=== PATIENT | female | born 1960 | race Caucasian/White ===

== ENCOUNTER → 2016-10-24 | Outpatient (CLI) | payer OTHER | LOC: RAD 16:40 | DX: M54.2 Cervicalgia (principal); M54.9 Dorsalgia, unspecified; R05 Cough; M47.812 Spondylosis without myelopathy or radiculopathy, cervical region; M25.78 Osteophyte, vertebrae; M47.814 Spondylosis without myelopathy or radiculopathy, thoracic region; M48.06 Spinal stenosis, lumbar region; M47.897 Other spondylosis, lumbosacral region; M47.892 Other spondylosis, cervical region; R91.8 Other nonspecific abnormal finding of lung field | CPT/HCPCS: 71020; 72050; 72072; 72110 ==

== ENCOUNTER → 2016-12-07 | Outpatient (CLI) | payer OTHER | LOC: KOH-I 09:30 | DX: M54.5 Low back pain (principal); M48.06 Spinal stenosis, lumbar region; M46.97 Unspecified inflammatory spondylopathy, lumbosacral region; M51.36 Other intervertebral disc degeneration, lumbar region | CPT/HCPCS: 72148 ==

== ENCOUNTER → 2020-07-30 | Outpatient (CLI) | payer OTHER | LOC: KOH-I 10:40 | DX: Z12.2 Encounter for screening for malignant neoplasm of respiratory organs (principal); Z87.891 Personal history of nicotine dependence; R91.8 Other nonspecific abnormal finding of lung field; I71.2 Thoracic aortic aneurysm, without rupture | CPT/HCPCS: 71271 ==

== ENCOUNTER → 2020-08-23 | Outpatient (CLI) | payer OTHER | LOC: RAD 13:33 | DX: R05 Cough (principal); M54.9 Dorsalgia, unspecified; M47.812 Spondylosis without myelopathy or radiculopathy, cervical region; M48.02 Spinal stenosis, cervical region; M25.78 Osteophyte, vertebrae; M47.816 Spondylosis without myelopathy or radiculopathy, lumbar region; M41.9 Scoliosis, unspecified; M48.061 Spinal stenosis, lumbar region without neurogenic claudication; Z90.11 Acquired absence of right breast and nipple | CPT/HCPCS: 71046; 72050; 72072; 72110 ==

== ENCOUNTER → 2020-09-20 | Outpatient (CLI) | payer OTHER ==
[2020-09-20 12:50] LABS: HEMOGLOBIN 13.5 gm/dl (12.3-15.3); RED BLOOD COUNT 4.1 M/UL (4.00-5.10); WHITE BLOOD COUNT 2.9 K/UL (4.5-11.0)
== END ==
LOC: MAMO 11:00
PROVIDERS: Internal Medicine Hematology & Oncology
DX: Z12.31 Encounter for screening mammogram for malignant neoplasm of breast (principal); Z85.3 Personal history of malignant neoplasm of breast; Z98.890 Other specified postprocedural states
CPT/HCPCS: 36415; 77063; 77067; 80053; 85025

== ENCOUNTER → 2021-01-27 | Outpatient (CLI) | payer OTHER | LOC: KOH-I 09:03 | DX: R91.8 Other nonspecific abnormal finding of lung field (principal) | CPT/HCPCS: 71250 ==

== ENCOUNTER → 2021-08-08 | Outpatient (CLI) | payer OTHER | LOC: HEART 5 07:37 | DX: R07.9 Chest pain, unspecified (principal); R00.2 Palpitations; R06.02 Shortness of breath | CPT/HCPCS: 78452; 93306; A9502 ==

== ENCOUNTER → 2021-09-21 | Outpatient (CLI) | payer OTHER | LOC: MAMO 10:30 | DX: C50.819 Malignant neoplasm of overlapping sites of unspecified female breast (principal) | CPT/HCPCS: 77063; 77067 ==

== ENCOUNTER → 2021-12-22 | Outpatient (CLI) | payer OTHER | LOC: KOH-I 12:21 | DX: M54.2 Cervicalgia (principal); M54.6 Pain in thoracic spine; M54.50 Low back pain, unspecified; R05.9 Cough, unspecified; M47.812 Spondylosis without myelopathy or radiculopathy, cervical region; M47.814 Spondylosis without myelopathy or radiculopathy, thoracic region; M47.816 Spondylosis without myelopathy or radiculopathy, lumbar region | CPT/HCPCS: 71046; 72040; 72070; 72100 ==

== ENCOUNTER → 2022-01-31 | Outpatient (CLI) | payer OTHER | LOC: KOH-I 01-12 13:30 | DX: F17.210 Nicotine dependence, cigarettes, uncomplicated (principal); R91.8 Other nonspecific abnormal finding of lung field | CPT/HCPCS: 71271 ==